=== PATIENT | male | born 1965 | race Hispanic/Latino ===

== ENCOUNTER → 2018-09-26 | Outpatient (CLI) | payer OTHER ==
[~2018-09-26] MED LIST: CARV6.25 PO; CEPH250 PO; FURO20TA4 PO; LISI-617 PO; NAPR-1023 PO; SPIR25TA6 PO
== END | disposition home or self-care (01) ==
LOC: SHCH 13:24
PROVIDERS: ATTEND Internal Medicine Cardiovascular Disease
DX: I11.0 Hypertensive heart disease with heart failure (principal); I50.22 Chronic systolic (congestive) heart failure
CPT/HCPCS: 93306

== ENCOUNTER 2019-01-02 18:00 | Inpatient (IN) | payer OTHER | END 2019-01-04 18:05 | disposition home or self-care (01) | LOC: EDH 18:00 → 2CH 01-04 10:41 → EDHIP 18:43 ==

== ENCOUNTER → 2019-04-01 | Outpatient (CLI) | payer OTHER ==
[~2019-04-01] MED LIST changes: -CEPH250 PO; +IOHEXOL 350 MG/ML 100ML INFUS..BTL IV ONE; +MELO-108 PO; -NAPR-1023 PO; +PROP225C8 PO; +RIVA20TA PO; +TIMOLOL OP; +TIZA2CAP9 PO; +TRAM50TA4 PO
== END | disposition home or self-care (01) ==
LOC: RAH 09:36
PROVIDERS: ATTEND Internal Medicine Cardiovascular Disease
DX: I48.0 Paroxysmal atrial fibrillation (principal); J84.10 Pulmonary fibrosis, unspecified
CPT/HCPCS: 71275; Q9967

== ENCOUNTER 2019-04-05 05:34 | Observation (INO) | payer OTHER ==
[2019-04-03 11:24] VITALS: BP 117/77
[2019-04-03 11:28] LABS: BASOPHILS % (AUTO) 0.6 % (0.0-5.0); EOSINOPHILS % (AUTO) 0.9 % (0.0-8.0); HEMATOCRIT 50.5 % (42-54); LYMPHOCYTES % (AUTO) 26.4 % (21.0-51.0); MEAN CORPUSCULAR HEMOGLOBIN 30.6 pg (27.0-33.0); MEAN CORPUSCULAR HGB CONC 34.3 g/dL (32.0-36.0); MEAN CORPUSCULAR VOLUME 89.2 fL (79-99); MONOCYTES % (AUTO) 6.8 % (3.0-13.0); NEUTROPHILS % (AUTO) 65.3 % (40.0-77.0); NUCLEATED RED BLOOD CELLS 0.1 % (0.0-0.19); PLATELET COUNT (AUTO) 175 K/uL (130-400); RED BLOOD CELL COUNT(AUTO) 5.66 MIL/uL (4.50-6.20); RED CELL DISTRIBUTION WIDTH 13.3 % (11.0-15.5); WHITE BLOOD COUNT (AUTO) 7.2 K/uL (4.8-10.8)
[2019-04-03 11:40] LABS: INR 1.23 (0.85-1.15); PARTIAL THROMBOPLASTIN TIME 38.4 SEC (26.3-35.5); PROTHROMBIN TIME 12.8 SEC (9.6-11.6)
[2019-04-03 12:09] LABS: CREATININE 0.9 mg/dL (0.5-1.5); POTASSIUM 4.5 mmol/L (3.5-5.1)
--- NOTE | 2019-04-04 10:31 | NUR ---
ABNORMAL LABS ABNORMAL LABS REPORTED TO DR. BERONICA CARABALLO'S [employer] PT 12.8, INR 1.23, PTT 38.4. NO FURTHER ORDERS GIVEN. ALSO REPORTED CTA CHEST RESULT. MAY PROCEED WITH PLANNED PROCEDURE.
[2019-04-05] VITALS (19 sets, daily range): BP systolic 94–122; BP diastolic 58–88
[~2019-04-05] VITALS: Ht 167.6 cm; Wt 125.2 kg
[~2019-04-05 05:34] MED LIST changes: -CARV6.25 PO; -IOHEXOL 350 MG/ML 100ML INFUS..BTL IV ONE; -MELO-108 PO; +METO25TA6 PO; +OMEP40CA13 PO; -PROP225C8 PO; +PROP325C5 PO; -TIMOLOL OP
[2019-04-05] MEDS ORDERED: SODIUM CHLORIDE 0.9% 1000ML 1,000 ML IV ONE (06:05)
--- NOTE | 2019-04-05 06:38 | NUR ---
POTENTIAL FOR INFECTION: SHAVED FROM NECK AREA TO BILATERAL GROIN AND BILATERAL ABOVE KNEE PER KOSTAS RUDOLPH, FOLLOWED BY WIPING WITH KYMBERLY: 2% CHLORHEXIDINE GLUCONATE CLOTH PATIENTS PRE-OP SKIN PREP.
[2019-04-05] MEDS ORDERED: PROPOFOL 10 MG/ML 20ML VIAL IV ONE (06:50)
[2019-04-05] MEDS ORDERED: GLYCOPYRROLATE 1 MG/5 ML SYRINGE ONE (06:50)
[2019-04-05] MEDS ORDERED: ROCURONIUM 10MG/1ML SYR 10 MG/ML ML ONE (06:50)
[2019-04-05] MEDS ORDERED: NEOSTIGMINE 5MG/5ML SYR IV ONE (06:50)
[2019-04-05] MEDS ORDERED: MIDAZOLAM HCL 1 MG/ML 2ML VIAL ONE (06:50)
[2019-04-05] MEDS ORDERED: LIDOCAINE PF 2% 5ML ABBOJECT ONE (06:50)
[2019-04-05] MEDS ORDERED: NOREPINEPHRINE BITARTRATE 1 MG/1 ML ML IV ONE (06:51)
[2019-04-05] MEDS ORDERED: FENTANYL CITRATE PF 50 MCG/1 ML 5ML AMP IV ONE (06:51)
[2019-04-05] MEDS ORDERED: HEPARIN SODIUM 1000UNIT/ML 10ML VIAL ONE ×2 (07:25→08:58)
[2019-04-05] MEDS ORDERED: LIDOCAINE HCL 2% 20ML ONE ×2 (07:25→08:38)
[2019-04-05] MEDS ORDERED: SODIUM CHLORIDE 0.9% 1000ML 1,000 ML IV SCH (08:00)
[2019-04-05] MEDS ORDERED: PHENYLEPHRINE HCL 10 MG/ML 1ML VIAL IV ONE (09:14)
[2019-04-05] MEDS ORDERED: ROCURONIUM BROMIDE 10MG/1ML 5ML VL ONE (10:07)
[2019-04-05] MEDS ORDERED: ISOPROTERENOL HCL 0.2 MG/ML AMP/VIAL/BAG ONE (10:40)
[2019-04-05] MEDS ORDERED: PROTAMINE SULFATE 10 MG/ML 25ML VIAL IV ONE (11:23)
[2019-04-05] MEDS ORDERED: TRAMADOL HCL 50 MG TABLET PO PRN (11:45)
[2019-04-05] MEDS ORDERED: ACETAMINOPHEN-CODEINE 300/30MG TAB PO PRN (11:45)
[2019-04-05] MEDS ORDERED: TIZANIDINE HCL 2 MG TABLET PO PRN (11:45)
[2019-04-05] MEDS ORDERED: ONDANSETRON HCL 4 MG/2 ML VIAL ONE (11:50)
[2019-04-05] MEDS: SUCRALFATE 1 GM/10 ML PO SCH ×3 (11:53→21:02)
--- NOTE | 2019-04-05 16:25 | NUR ---
Assessment Assessment completed at bedside when patient arrived to the unit at 1535 Addendum: 04/05/19 at 1626 by IVNNIE BASS RN Amended: Links added.
[2019-04-05] MEDS ORDERED: APIXABAN 5 MG TABLET PO SCH (21:00)
[2019-04-05] MEDS: FUROSEMIDE 20 MG TABLET PO SCH (21:02)
[2019-04-05] MEDS: METOPROLOL TARTRATE 25 MG TAB PO SCH (21:03)
[2019-04-06 04:00] VITALS: BP 117/76
[2019-04-06] MEDS ORDERED: PANTOPRAZOLE SODIUM 40 MG TABLET.DR PO ONE (06:04)
[2019-04-06] MEDS: SUCRALFATE 1 GM/10 ML PO SCH (06:05)
[2019-04-06] MEDS ORDERED: PANTOPRAZOLE SODIUM 40 MG TABLET.DR PO SCH (07:30)
[2019-04-06] MEDS: METOPROLOL TARTRATE 25 MG TAB PO SCH (07:48)
[2019-04-06] MEDS: FUROSEMIDE 20 MG TABLET PO SCH (07:48)
[2019-04-06 07:58] VITALS: BP 129/81
--- NOTE | 2019-04-06 08:00 | NUR ---
ASSESSMENT PT IS AAOX3 DENIES CP DENIES SOB DENIES NV NO COMPLAINTS, SITTING UPRIGHT IN CHAIR. CALL LIGHT WITHIN REACH. FAMILY IS AT BEDSIDE.
[2019-04-06] MEDS ORDERED: SPIRONOLACTONE 25 MG TAB PO SCH (09:00)
[2019-04-06] MEDS ORDERED: LISINOPRIL 5 MG TABLET PO SCH (09:00)
--- NOTE | 2019-04-06 11:00 | NUR ---
DISCHARGE TO HOME DR EDIS MANCUSO, [place] [facility]. PRIMARY MD ALEJANDRO TO [facility]. ALL QUESTIONS ANSWERED, PIV REMOVED CATH TIP INTACT, TELE PACK REMOVED. AGREE TO FOLLOW UP WITH HEART CLINIC. ALL BELONGINGS GATHERED, DOWN TO VEHICLE VIA .
== END 2019-04-06 11:14 | disposition home or self-care (01) ==
LOC: DAH 05:34 → DAHIP 05:35 → DAH 05:35 → 4DH 13:35
PROVIDERS: ADMIT Internal Medicine; ATTEND Internal Medicine
DX: I48.0 Paroxysmal atrial fibrillation (principal); I11.0 Hypertensive heart disease with heart failure; I50.43 Acute on chronic combined systolic (congestive) and diastolic (congestive) heart failure; D68.59 Other primary thrombophilia; E78.5 Hyperlipidemia, unspecified; R73.9 Hyperglycemia, unspecified; G47.33 Obstructive sleep apnea (adult) (pediatric); Z79.01 Long term (current) use of anticoagulants; Z79.899 Other long term (current) drug therapy
CPT/HCPCS: 36415 ×2; 80048; 85025; 85347 ×6; 85610; 85730; 93005; 93613; 93622; 93623; 93656; 93662; A4215 ×2; A4221; A4222; A4223; A4344; A4649 ×2; A4663; A5120; C1730; C1731; C1732; C1893 ×2; C1894 ×4; G0378 ×23; J1644 ×3; J2001; J2250; J2370; J2405; J2704; J2710; J2720; J3010; J3490 ×6; J7030

== ENCOUNTER → 2023-08-04 | Outpatient (CLI) | payer OTHER ==
[~2023-08-04] MED LIST changes: -LISI-617 PO; +LISI5TAB21 PO; -OMEP40CA13 PO; +OMEP40CA21 PO; -PROP325C5 PO
[2023-08-04 12:16] LABS: BASOPHILS # (AUTO) 0.03 K/uL (0.00-0.20); BASOPHILS % (AUTO) 0.3 % (0.0-5.0); EOSINOPHILS # (AUTO) 0.07 K/uL (0.00-0.70); EOSINOPHILS % (AUTO) 0.8 % (0.0-8.0); HEMATOCRIT 51.3 % (42-54); IMMATURE GRANULOCYTE ABSOLUTE 0.04 K/uL (0-1); LYMPHOCYTES # (AUTO) 1.9 K/uL (1.0-4.8); LYMPHOCYTES % (AUTO) 21.2 % (21.0-51.0); MEAN CORPUSCULAR HEMOGLOBIN 29.9 pg (27.0-33.0); MEAN CORPUSCULAR HGB CONC 33.9 g/dL (32.0-36.0); MEAN CORPUSCULAR VOLUME 88.1 fL (79-99); MONOCYTES # (AUTO) 0.7 K/uL (0.1-1.0); MONOCYTES % (AUTO) 7.9 % (3.0-13.0); NEUTROPHILS # (AUTO) 6.3 K/uL (1.8-7.7); NEUTROPHILS % (AUTO) 69.4 % (40.0-77.0); PLATELET COUNT (AUTO) 183 K/uL (130-400); RED BLOOD CELL COUNT(AUTO) 5.82 MIL/uL (4.50-6.20); RED CELL DISTRIBUTION WIDTH 13.3 % (11.0-15.5); WHITE BLOOD COUNT (AUTO) 9.1 K/uL (4.8-10.8)
[2023-08-04 12:36] LABS: ALBUMIN 3.9 g/dL (3.5-5.0); CREATININE 0.8 mg/dL (0.5-1.3); POTASSIUM 4.6 mmol/L (3.5-5.1); TOTAL PROTEIN, SERUM 7.3 g/dL (6.0-8.3)
== END | disposition home or self-care (01) ==
LOC: LAB 09:10
PROVIDERS: ATTEND Internal Medicine Cardiovascular Disease
DX: E11.59 Type 2 diabetes mellitus with other circulatory complications (principal); I50.22 Chronic systolic (congestive) heart failure
CPT/HCPCS: 36415; 80053; 80061; 85025

== ENCOUNTER → 2024-02-05 | Outpatient (CLI) | payer OTHER ==
[2024-02-05 12:20] LABS: BASOPHILS # (AUTO) 0.03 K/uL (0.00-0.20); BASOPHILS % (AUTO) 0.4 % (0.0-5.0); EOSINOPHILS # (AUTO) 0.08 K/uL (0.00-0.70); HEMATOCRIT 50.2 % (42-54); IMMATURE GRANULOCYTE ABSOLUTE 0.03 K/uL (0-1); LYMPHOCYTES # (AUTO) 1.9 K/uL (1.0-4.8); LYMPHOCYTES % (AUTO) 22.8 % (21.0-51.0); MEAN CORPUSCULAR HEMOGLOBIN 29.9 pg (27.0-33.0); MEAN CORPUSCULAR HGB CONC 33.7 g/dL (32.0-36.0); MEAN CORPUSCULAR VOLUME 88.8 fL (79-99); MONOCYTES # (AUTO) 0.6 K/uL (0.1-1.0); MONOCYTES % (AUTO) 7.6 % (3.0-13.0); NEUTROPHILS # (AUTO) 5.7 K/uL (1.8-7.7); NEUTROPHILS % (AUTO) 67.8 % (40.0-77.0); PLATELET COUNT (AUTO) 159 K/uL (130-400); RED BLOOD CELL COUNT(AUTO) 5.65 MIL/uL (4.50-6.20); RED CELL DISTRIBUTION WIDTH 13.2 % (11.0-15.5); WHITE BLOOD COUNT (AUTO) 8.4 K/uL (4.8-10.8)
[2024-02-05 12:42] LABS: ALBUMIN 3.8 g/dL (3.5-5.0); BILIRUBIN,TOTAL 0.8 mg/dL (0.2-1.0); CREATININE 0.8 mg/dL (0.5-1.3); POTASSIUM 4.3 mmol/L (3.5-5.1)
== END | disposition home or self-care (01) ==
LOC: LAB 09:36
PROVIDERS: ATTEND Internal Medicine Cardiovascular Disease
DX: I48.0 Paroxysmal atrial fibrillation (principal); I49.5 Sick sinus syndrome; D68.59 Other primary thrombophilia; Z79.899 Other long term (current) drug therapy
CPT/HCPCS: 36415; 80053; 80061; 85025

== ENCOUNTER → 2024-05-06 | Outpatient (CLI) | payer OTHER ==
[2024-05-06 12:22] LABS: ALBUMIN 3.7 g/dL (3.5-5.0); BILIRUBIN,TOTAL 0.7 mg/dL (0.2-1.0); CREATININE 0.9 mg/dL (0.5-1.3); POTASSIUM 4.7 mmol/L (3.5-5.1); TOTAL PROTEIN, SERUM 6.9 g/dL (6.0-8.3)
== END | disposition home or self-care (01) ==
LOC: LAB 08:53
PROVIDERS: ATTEND Internal Medicine Cardiovascular Disease
DX: I11.0 Hypertensive heart disease with heart failure (principal); I50.42 Chronic combined systolic (congestive) and diastolic (congestive) heart failure; E78.5 Hyperlipidemia, unspecified
CPT/HCPCS: 36415; 80053; 80061